=== PATIENT | male | born 1995 | race Caucasian/White ===

== ENCOUNTER 2018-11-07 15:35 | Emergency (ER) | payer SELFPAY ==
[~2018-11-07] VITALS: Ht 172.7 cm; Wt 101.0 kg
[2018-11-07] MEDS ORDERED: HYDROCODONE/ACETAMINOPHEN 5/325MG TABLET PO ONE (16:00)
[2018-11-07] MEDS ORDERED: LIDOCAINE HCL 1% 20ML VIAL (Pyxis) INJ INFIL ONE (16:00)
[2018-11-07] MEDS: BACITRACIN ZINC OINT UDPKT TOP ONE ×2 (17:16→17:23)
[2018-11-07] MEDS: BACITRACIN 15GM TUBE TOP NR ×6 (17:17→17:23)
[2018-11-07 17:27] VITALS: BP 122/71
== END 2018-11-07 17:29 | disposition home or self-care (01) ==
LOC: ER 15:35
DX: T16.1XXA Foreign body in right ear, initial encounter (principal); X58.XXXA Exposure to other specified factors, initial encounter; Y93.89 Activity, other specified; Y92.89 Other specified places as the place of occurrence of the external cause; Y99.8 Other external cause status
CPT/HCPCS: 99284; J3490